=== PATIENT | female | born 1995 | race Caucasian/White ===

== ENCOUNTER → 2016-12-29 | Outpatient (CLI) | payer BC ==
[~2016-12-29] MED LIST: CHOL2000 PO; LEVO75TA5 PO
--- NOTE | 2016-12-29 09:41 | DIAGNOSTIC IMAGING REPORT ---
THYROID ULTRASONOGRAPHY CLINICAL HISTORY: E04.2 Multiple thyroid [id number] COMPARISON STUDY: 02/14/2016 FINDINGS: The right lobe of thyroid measures 5.5 x 2.4 x 2.1 cm. The left lobe measures 4.6 x 1.1 x 1.4 cm. Both lobes are inhomogeneous in echotexture. There are coalescent right lobe nodules. This makes measurement difficult. The dominant partially solid and cystic nodule measures 2.7 cm in long axis. This remains unchanged from the prior study. On the left, there are 2 hypoechoic 7 mm nodules, which appear to be just inferior to the thyroid gland. These may represent small lymph nodes. Small isthmus nodules are again visualized.. IMPRESSION: Multinodular thyroid gland, similar in appearance to the preceding study. In addition, there are 2 subcentimeter hypoechoic nodules located inferior to the left lobe of the thyroid, possibly representing small lymph nodes. In retrospect at least one of these was present on the prior study, and appears stable. Electronically signed by: Cody Grant M.D. 12/29/2016 9:39 AM Dictated Date/Time: 12/29/2016 9:29 AM
== END | disposition home or self-care (01) ==
LOC: C.ULTR 08:40
PROVIDERS: ATTEND Internal Medicine Endocrinology, Diabetes & Metabolism
DX: E04.2 Nontoxic multinodular goiter (principal)

== ENCOUNTER → 2016-12-31 | Outpatient (CLI) | payer BC ==
[2016-12-31 10:50] LABS: ALT/SGPT 20 U/L (12-78); BLOOD UREA NITROGEN 13 mg/dl (7-18); BUN/CREATININE RATIO 16.8 (10-20); CALCIUM 9.2 mg/dl (8.5-10.1); CARBON DIOXIDE 27 mmol/L (21-32); CHLORIDE 103 mmol/L (98-107); CHOLESTEROL 206 mg/dl (0-200); CREATININE 0.75 mg/dl (0.60-1.20); GLUCOSE 77 mg/dl (70-99); GLUCOSE,FASTING 77 mg/dl (70-99); POTASSIUM 3.7 mmol/L (3.5-5.1); SODIUM 137 mmol/L (136-145)
[2016-12-31 10:57] LABS: CALCULATED INSULIN SENSITIVITY 0.317; GLUCOSE LOG 1.8865; INSULIN FASTING 18.6 mU/L (3-25); INSULIN LOG 1.2695
[2016-12-31 10:58] LABS: ALB/GLOB RATIO 0.8 (0.9-2); ALKALINE PHOSPHATASE 75 U/L (45-117); AST/SGOT 13 U/L (15-37); CHOLESTEROL/HDL RATIO 4.5; HDL CHOLESTEROL 46 mg/dl; LDL CHOLESTEROL CALCULATED 117 mg/dl; TRIGLYCERIDES 217 mg/dl (0-150); VERY LOW DENSITY LIPOPROT CALC 43 mg/dl
[2017-01-06 02:21] LABS: ILGF1 Z SCORE FEMALE -0.2 SD (-2.0 - +2.0); INSULIN LIKE GROWTH FACTOR-I 184 ng/mL (83-456); MICROSOMAL AB 1 IU/ML (<9); TESTOSTERONE,TOTAL 42 ng/dL (2-45)
== END | disposition home or self-care (01) ==
LOC: C.LAB 09:24
PROVIDERS: ATTEND Internal Medicine Endocrinology, Diabetes & Metabolism
DX: E04.2 Nontoxic multinodular goiter (principal); E55.9 Vitamin D deficiency, unspecified; E66.9 Obesity, unspecified; L68.0 Hirsutism; R53.83 Other fatigue; R23.2 Flushing

== ENCOUNTER 2017-02-27 14:51 | Emergency (ER) | payer BC ==
[~2017-02-27] VITALS: Ht 162.6 cm; Wt 97.0 kg
[2017-02-27 14:57] VITALS: Ht 162.6 cm; Wt 97.0 kg
[2017-02-27] MEDS ORDERED: LEVO75TA5 PO (15:25)
[2017-02-27] MEDS ORDERED: CHOL2000 PO (15:29)
--- NOTE | 2017-02-27 15:38 | DIAGNOSTIC IMAGING REPORT ---
CHEST ONE VIEW PORTABLE CLINICAL HISTORY: Evaluate Fever/Sepsis fever. Dyspnea. COMPARISON STUDY: No previous studies for comparison. FINDINGS: The bones soft tissues and hemidiaphragms are normal. The cardiomediastinal silhouette is normal. The lungs are clear. The pulmonary vasculature is normal. IMPRESSION: Negative chest. Electronically signed by: Francis Roberts M.D. 02/27/2017 3:37 PM Dictated Date/Time: 02/27/2017 3:37 PM
[2017-02-27 17:34] LABS: CREATININE 0.77 mg/dl (0.60-1.20)
[2017-02-27] MEDS ORDERED: OPTIRAY 320 IV PRN (18:15)
--- NOTE | 2017-02-27 18:21 | DIAGNOSTIC IMAGING REPORT ---
CHEST CTA for PULMONARY ARTERIES CT DOSE: 1146.65 mGy.cm HISTORY: Chest pain dyspnea TECHNIQUE: Multiaxial CT images of the chest were performed following the intravenous administration of contrast to evaluate the pulmonary arteries. Maximal intensity projection images were also obtained. COMPARISON STUDY: None. FINDINGS: There is a normal caliber thoracic aorta with no evidence for dissection. There is no evidence for pulmonary embolus. No pleural effusions. No pneumothorax. The liver and spleen are unremarkable. No mediastinal or hilar lymphadenopathy. The central airways are patent. The lungs are clear. IMPRESSION: No evidence for pulmonary embolus. Electronically signed by: Francis Roberts M.D. 02/27/2017 6:19 PM Dictated Date/Time: 02/27/2017 6:18 PM
--- NOTE | 2017-02-27 18:32 | EMERGENCY ROOM VISIT NOTE ---
History Report prepared by Misa: Chato Fernandez Under the Supervision of: Dr. Perry Snowden D.O. First contact with patient: 14:53 Chief Complaint: ANXIETY Stated Complaint: ANXIETY History of Present Illness The patient is a 21 year old female who presents to the Emergency Room with complaints of sudden, resolved anxiety attack beginning prior to arrival. The patient states that she was working at [employer] and was running around completing tasks, when all of a sudden she was experiencing shortness of breath , sharp chest pain, and numbness that started in the back of her neck and then radiated to the rest of her body. She states that she has never had an attack as severe as this one before. The patient notes that she feels a lot better now. She also notes that does not take any medications for her anxiety. The patient reports that she had thyroid surgery two weeks ago at [facility], and the only medication she is currently taking is a thyroid hormone once a day. She notes she has an irregular menstrual period and her last period was 1.5 months ago. Source of History: patient Onset: prior to arrival Position: other (global) Quality: other (anxiety attack) Timing: resolved Associated Symptoms: + SOB, + chest pain, + numbness Review of Systems See HPI for pertinent positives & negatives. A total of 10 systems reviewed and were otherwise negative. Past Medical & Surgical Surgical Problems: (1) History of thyroid surgery Family History No pertinent family history stated. Social History Marital Status: single Housing Status: lives alone Occupation Status: employed Current/Historical Medications Scheduled Cholecalciferol (Vitamin D3), 2,000 UNITS PO DAILY Levothyroxine Sodium (Levothyroxine Sodium), 75 MCG PO DAILY Allergies Uncoded Allergies: NONE (Allergy, Unknown, 03/18/04) Physical Exam Vital Signs Date Time Temp Pulse Resp B/P Pulse Ox O2 Delivery O2 Flow Rate FiO2 02/27/17 17:34 92 18 134/79 99 Room Air 02/27/17 14:57 36.7 84 16 144/96 100 Room Air Physical Exam CONSTITUTIONAL/VITAL SIGNS: Reviewed / noted above. GENERAL: Non-toxic in appearance. INTEGUMENTARY: Warm, dry, and [place]. HEAD: Normocephalic. EYES: without scleral icterus or trauma. ENT/OROPHARYNX: clear and moist. LYMPHADENOPATHY/NECK: Is supple without lymphadenopathy or meningismus. RESPIRATORY: Lungs clear and equal. CARDIOVASCULAR: Regular rate and rhythm. GI/ABDOMEN: Soft and nontender. No organomegaly or pulsatile mass. No rebound or guarding. Normal bowel sounds. EXTREMITIES: Warm and well perfused. BACK: No CVA tenderness. NEUROLOGICAL: Intact without focal deficits. PSYCHIATRIC: normal affect. MUSCULOSKELETAL: Normally developed with good muscle tone. Medical Decision & Procedures ER Provider Diagnostic Interpretation: Radiology results as stated below per my review and radiologist interpretation: CHEST ONE VIEW PORTABLE CLINICAL HISTORY: Evaluate Fever/Sepsis fever. Dyspnea. COMPARISON STUDY: No previous studies for comparison. FINDINGS: The bones soft tissues and hemidiaphragms are normal. The cardiomediastinal silhouette is normal. The lungs are clear. The pulmonary vasculature is normal. IMPRESSION: Negative chest. Electronically signed by: Francis Roberts M.D. 02/27/2017 3:37 PM Dictated Date/Time: 02/27/2017 3:37 PM CHEST CTA for PULMONARY ARTERIES CT DOSE: 1146.65 mGy.cm HISTORY: Chest pain dyspnea TECHNIQUE: Multiaxial CT images of the chest were performed following the intravenous administration of contrast to evaluate the pulmonary arteries. Maximal intensity projection images were also obtained. COMPARISON STUDY: None. FINDINGS: There is a normal caliber thoracic aorta with no evidence for dissection. There is no evidence for pulmonary embolus. No pleural effusions. No pneumothorax. The liver and spleen are unremarkable. No mediastinal or hilar lymphadenopathy. The central airways are patent. The lungs are clear. IMPRESSION: No evidence for pulmonary embolus. Electronically signed by: Francis Roberts M.D. 02/27/2017 6:19 PM Dictated Date/Time: 02/27/2017 6:18 PM Laboratory Results 02/27/17 15:25 Test 02/27/17 15:25 02/27/17 15:32 Est Creatinine Clear Calc Drug Dose 128.5 ml/min Estimated GFR () 126.1 Estimated GFR (Non- 108.8 Bedside D-Dimer > 450 ng/mlFEU (0-450) Bedside Troponin I 0.010 ng/ml (0-0.045) Laboratory results as stated above per my review. ECG Indication: other (anxiety) Rate (beats per minute): 83 Rhythm: normal sinus Findings: no acute ischemic change, no ectopy ED Course 1502: Previous medical records were reviewed. The patient was evaluated in room B07. A complete history and physical examination was performed. 1606: I reevaluated the patient and informed her of her positive D-dimer. I informed her that she will need to have a CT. 1833: On reevaluation, the patient is feeling better. I discussed the results and findings with the patient. She verbalized agreement of the treatment plan. She was discharged home. Medical Decision the differential was considered includes acute myocardial infarction, acute coronary syndrome, myocarditis, pericarditis, pericardial effusions /tamponade, esophageal perforation, thoracic aortic dissection, pulmonary embolism, pneumonia, pneumothorax, pancreatitis, shingles, acute cholecystitis, perforated abdominal viscus. This is a 21-year-old female who presents to the ED with a chief complaint of panic attack-like symptoms. The patient pulled some retrosternal chest pain, neck, arm and hand numbness and tingling as well as some shortness of breath and lightheadedness. She states that her symptoms occurred just prior to arrival. She states that she is now feeling better. She states that she has had surgery for thyroidectomy a couple weeks ago. The patient has a normal exam. Vital signs are stable. Chest x-ray did not show acute disease. D- dimer was positive and troponin is negative.. EKG shows a normal sinus rhythm at a rate of 83 without acute injury or ectopy. CT scan to rule out PE is negative for acute disease. The patient was told the results. She is felt to be stable for discharge and outpatient follow-up. Impression Primary Impression: Acute anxiety Additional Impression: Retrosternal pain Scribe Attestation The scribe's documentation has been prepared under my direction and personally reviewed by me in its entirety. I confirm that the note above accurately reflects all work, treatment, procedures, and medical decision making performed by me. Departure Information Dispostion Home / Self-Care Referrals Sobia Bonilla C.R.N.P (PCP) Patient Instructions Anxiety Disorder, My [facility] Additional Instructions Follow-up with your doctor for further care and evaluation in 1-2 days. Return to the emergency department for worsening or new symptoms or any concerns. You have been examined and treated today on an emergency basis only. This is not a substitute for, or an effort to provide, complete comprehensive medical care. It is impossible to recognize and treat all injuries or illnesses in a single emergency department visit. It is therefore important that you follow up closely with your doctor. Call as soon as possible for an appointment. Problem Qualifiers
[2017-02-27 18:39] VITALS: BP 138/89; PULSE 89; TEMP 36.7; O2SAT 98
== END 2017-02-27 18:40 | disposition home or self-care (01) ==
LOC: EDBD 14:51 → C.EDB 14:52
DX: F41.9 Anxiety disorder, unspecified (principal); R07.2 Precordial pain; Z79.899 Other long term (current) drug therapy

== ENCOUNTER → 2017-04-01 | Outpatient (CLI) | payer BC ==
[2017-04-01 18:25] LABS: THYROID STIMULATING HORMONE 1.22 uIu/ml (0.300-4.500)
== END | disposition home or self-care (01) ==
LOC: C.LABPVFM 11:42
PROVIDERS: ATTEND Internal Medicine Endocrinology, Diabetes & Metabolism
DX: E03.9 Hypothyroidism, unspecified (principal); L68.0 Hirsutism

== ENCOUNTER → 2017-06-17 | Outpatient (CLI) | payer BC | END | disposition home or self-care (01) | LOC: C.LABPVFM 06:53 | PROVIDERS: ATTEND Nurse Practitioner | DX: L05.01 Pilonidal cyst with abscess (principal) ==

== ENCOUNTER → 2017-09-21 | Outpatient (CLI) | payer BC ==
[2017-09-21 18:36] LABS: CALCIUM 8.8 mg/dl (8.5-10.1)
[2017-09-21 18:50] LABS: THYROID STIMULATING HORMONE 2.74 uIu/ml (0.300-4.500)
== END | disposition home or self-care (01) ==
LOC: C.LABPVFM 11:07
PROVIDERS: ATTEND Internal Medicine Endocrinology, Diabetes & Metabolism
DX: E03.9 Hypothyroidism, unspecified (principal)